=== PATIENT | female | born 1995 | race Caucasian/White ===

== ENCOUNTER 2023-03-02 13:30 | Emergency (ER) | payer OTHER ==
[~2023-03-02] VITALS: Ht 160 cm; Wt 77.3 kg
[~2023-03-02 13:30] MED LIST: FAMO-1 PO; FERR-119 PO; METR-159 PO
[2023-03-02 16:48] LABS: BASOPHILS % (AUTO) 0.5 % (0-1); EOSINOPHILS % (AUTO) 0.3 % (0-6); HEMOGLOBIN 11.3 g/dl (12.0-16.0); LYMPHOCYTES # (AUTO) 0.8 X10'3 (1.1-4.8); LYMPHOCYTES % (AUTO) 12.8 % (21-51); MEAN CORPUSCULAR HEMOGLOBIN 22.4 PG (27.0-31.0); MEAN CORPUSCULAR HGB CONC 30.6 g/dL (33.0-36.5); MEAN CORPUSCULAR VOLUME 73.2 FL (78-98); MEAN PLATELET VOLUME 9.8 FL (7.4-10.4); MONOCYTES # (AUTO) 0.4 X10'3 (0-0.9); MONOCYTES % (AUTO) 6.5 % (2-12); NEUTROPHILS % (AUTO) 79.9 % (42-75); PLATELET COUNT 176 X10'3 (140-440); RED BLOOD COUNT 5.05 X10'6 (4.20-5.60); RED CELL DISTRIBUTION WIDTH 20.5 % (11.5-14.5); WHITE BLOOD COUNT 6.3 X10'3 (4.5-11.0)
[2023-03-02 17:03] LABS: D-DIMER 3.93 MG/L FEU (0-0.50)
[2023-03-02 17:05] LABS: ALANINE AMINOTRANSFERASE 18 U/L (12-78); ALBUMIN 3.4 G/DL (3.4-5.0); ALBUMIN/GLOBULIN RATIO 0.8 (1.1-1.5); ALKALINE PHOSPHATASE 46 IU/L (46-116); ANION GAP 10 (8-16); ASPARTATE AMINO TRANSFERASE 12 U/L (10-37); BILIRUBIN,TOTAL 0.4 MG/DL (0.1-1.0); BLOOD UREA NITROGEN 13 MG/DL (7-18); BUN/CREATININE RATIO 18.6 (10.0-20.0); CALCIUM 8.8 MG/DL (8.5-10.1); CHLORIDE 104 MMOL/L (99-107); GLUCOSE 119 MG/DL (70-104); SODIUM 139 MMOL/L (135-145); TOTAL CARBON DIOXIDE 24.7 MMOL/L (24-32); TOTAL PROTEIN 7.5 G/DL (6.4-8.2); eGFR > 90 ML/MIN
[2023-03-02 17:11] VITALS: BP 124/95
[2023-03-02] MEDS ORDERED: CEPH-585 PO (17:49)
[2023-03-02 18:03] LABS: ANISOCYTOSIS 3+; MICROCYTOSIS 1+; PLATELET ESTIMATE NORMAL; POIKILOCYTOSIS 1+
[2023-03-02 18:04] LABS: ELLIPTOCYTES FEW
== END 2023-03-02 19:15 | disposition home or self-care (01) ==
LOC: ER 13:30
DX: I87.8 Other specified disorders of veins (principal); L03.115 Cellulitis of right lower limb; Z86.2 Personal history of diseases of the blood and blood-forming organs and certain disorders involving the immune mechanism; Z79.899 Other long term (current) drug therapy
CPT/HCPCS: 36415; 80053; 85008; 85025; 85379; 85610; 93971; 99284

== ENCOUNTER 2023-03-03 12:12 | Emergency (ER) | payer OTHER ==
[~2023-03-03] VITALS: Ht 160 cm; Wt 75.0 kg
[~2023-03-03 12:12] MED LIST changes: +CEPH-585 PO
[2023-03-03 12:19] VITALS: BP 129/92
== END 2023-03-03 12:59 | disposition home or self-care (01) ==
LOC: ER 12:13
DX: D25.9 Leiomyoma of uterus, unspecified (principal); R22.42 Localized swelling, mass and lump, left lower limb
CPT/HCPCS: 99281